=== PATIENT | male | born 1980 | race Caucasian/White ===

== ENCOUNTER 2017-05-22 10:48 | Emergency (ER) | payer SELFPAY ==
[2017-05-22 11:15] VITALS: RESP 16; TEMP 97.7
--- NOTE | 2017-05-22 13:50 | DI ---
XR ANKLE COMPLETE MIN 3VW,05/22/2017 11:00 AM: Clinical History: Trauma Previous Exam: None at this facility. Findings: 3 views of the left ankle are obtained, and demonstrate a slightly displaced fracture of the left dis baltazar fibular diaphysis. There is a large amount of surrounding soft tissue swelling. Impression: Spiral fracture through the left distal fibular diaphysis.
--- NOTE | 2017-05-23 05:58 | PDOC ---
Lower Extremity Injury HPI - General Chief Complaint: Lower Extremity Problem/Injury Stated Complaint: FELL AND INJURED LEFT ANKLE Date Seen by Provider: 05/22/17 Time Seen by Provider: 10:55 Source: POSITIVE: Patient Exam Limitations: POSITIVE: No limitations Nurse's Notes Reviewed & Considered: Yes - History of Present Illness Initial Comments: The patient is a 36-year-old male. 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 He fell onto his left foot and forced his left foot into inversion. He states he has attempted to walk on this leg, but it is very painful when he tries to do so. He has swelling over the lateral and medial aspect of the involved ankle. He denies any knee or hip pain. No other trauma. Have you received a tetanus shot in the past 10 years?: Unknown Body Location Affected: REPORTS: Lower Extremity (L) Timing: REPORTS: Abrupt Duration: 1 hour Severity: Moderate Quality: REPORTS: "Pain" Location at Time of Onset: REPORTS: Work Context of Injury: REPORTS: Fall, Twist Location of Injury: REPORTS: Ankle (L) Modifying Factors: improves with: Walking, Other (Direct palpation exacerbates) Associated Symptoms: REPORTS: Unable to Bear Weight, Snapping Any Prior Injuries Related to Current Complaint?: No - Patient Home Medications Home Medications: Home Medications Cetirizine HCl [Zyrtec] 10 mg PO DAILY PRN 05/22/17 HYDROcodone/APAP 10/325 Tab [[place] 10/325 Tab] 1 tab PO Q4H PRN #25 tab - Patient Allergies Allergies/Adverse Reactions: Allergies Allergy/AdvReac Type Severity Reaction Status Date / Time No Known Allergies Allergy Unverified 05/22/17 10:52 Past Medical History - heen HEENT History: Denies History Cardiovascular History: Denies History Respiratory History: Other (please comment) Additional Respiratory History: ALLERGIES Gastrointestinal History: Denies History Genitourinary History: Denies History Endocrine History: Denies History Musculoskeletal History: Denies History Neurological History: Denies History Blood Disorders: Denies History Psychiatric History: Denies History History of Sexually Transmitted Diseases: No Male Reproductive History: Denies History Cancer History: Denies History In Past Year Been Physically Harmed or Verbally Threatened: No History of MDRO: No History of Other Communicable Diseases: No Tobacco Use: Never Smoker Alcohol Use: Occasionally Substance Use Type: None Previous Surgical History: No Significant Family History: No pertinent family hx Past Medical History Reviewed: Reviewed - No Changes ROS - Limitations ROS Limitations: No Limitations Constitution: REPORTS: Denies Symptoms Cardiovascular: REPORTS: Denies Cardiac Symptoms Respiratory: REPORTS: Denies Resp Symptoms Neurological: REPORTS: Denies Neuro Symptoms Gastrointestinal: REPORTS: Denies GI Symptoms Endocrine: REPORTS: Denies Symptoms Musculoskeletal: REPORTS: Joint Pain (Left ankle), Recent Injury (As above) Genitourinary: REPORTS: Denies Symptoms Eyes: REPORTS: Denies Symptoms ENT: REPORTS: Denies Symptoms Skin: REPORTS: Denies Skin Symptoms Lympathic: REPORTS: Denies Lympathic Symptoms Immunologic: POSITIVE: Denies Symptoms Psychiatric: POSITIVE: Denies Psych Symptoms Discharge Clinical Impression: Ankle fracture, left Condition: Stable Prescriptions / Orders: HYDROcodone/APAP 10/325 Tab [[place] 10/325 Tab] 1 tab PO Q4H PRN #25 tab PRN Reason: Pain Patient Instructions Given at Discharge: Ankle Fracture (ED) Additional Instructions: You have a fracture to your left ankle. Please keep your foot and ankle immobilized in a cam walker and use crutches and bear no weight on your left leg. Elevate sure leg. Follow-up in the orthopedic clinic. Hydrocodone/APAP, one every 4 hours as necessary for pain. Return here anytime if condition worsens in any way whatsoever. Do not return to work until cleared by the orthopedist. Follow Up With: NONE,NONE [Primary Care Provider] - (Instructions as above. Follow-up in orthopedic clinic. Return here as necessary.)
--- NOTE | 2017-05-23 06:07 | PDOC ---
Foot / Ankle Injury - General Chief Complaint: Lower Extremity Problem/Injury Stated Complaint: FELL AND INJURED LEFT ANKLE Date Seen by Provider: 05/22/17 Time Seen by Provider: 10:55 Source: POSITIVE: Patient Exam Limitations: POSITIVE: No limitations Nurse's Notes Reviewed & Considered: Yes - History of Present Illness Initial Comments: The patient is a 36-year-old male. 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 Incident occurred approximately one hour ago. He states he attempted to walk on his left foot but had considerable pain when trying to do so. He denies any knee hip or any other injuries. No sensory, or motor symptoms. Have you received a tetanus shot in the past 10 years?: Unknown Location: Left Ankle Timing: REPORTS: Abrupt Duration: 1 hour Severity: Moderate Quality: REPORTS: "Pain" Location at Time of Onset: REPORTS: Work Context: REPORTS: Fall, Twist Modifying Factors: REPORTS: Movement, Other (discomfort on palpation) Associated Symptoms: REPORTS: Swelling, Snapping Sensation. DENIES: Tingling Distally, Numbness Distally, Popping Sensation, Other Any Prior Injuries Related to Current Complaint?: No - Patient Allergies Allergies/Adverse Reactions: Allergies Allergy/AdvReac Type Severity Reaction Status Date / Time No Known Allergies Allergy Unverified 05/22/17 10:52 - Patient Home Medications Home Medications: Home Medications Cetirizine HCl [Zyrtec] 10 mg PO DAILY PRN 05/22/17 HYDROcodone/APAP 10/325 Tab [[place] 10/325 Tab] 1 tab PO Q4H PRN #25 tab Past Medical History - heen HEENT History: Denies History Cardiovascular History: Denies History Respiratory History: Other (please comment) Additional Respiratory History: ALLERGIES Gastrointestinal History: Denies History Genitourinary History: Denies History Endocrine History: Denies History Musculoskeletal History: Denies History Neurological History: Denies History Blood Disorders: Denies History Psychiatric History: Denies History History of Sexually Transmitted Diseases: No Male Reproductive History: Denies History Cancer History: Denies History In Past Year Been Physically Harmed or Verbally Threatened: No History of MDRO: No History of Other Communicable Diseases: No Tobacco Use: Never Smoker Alcohol Use: Occasionally Substance Use Type: None Previous Surgical History: No Significant Family History: No pertinent family hx Past Medical History Reviewed: Reviewed - No Changes ROS - Limitations ROS Limitations: No Limitations Constitution: REPORTS: Denies Symptoms Cardiovascular: REPORTS: Denies Cardiac Symptoms Respiratory: REPORTS: Denies Resp Symptoms Neurological: REPORTS: Denies Neuro Symptoms Gastrointestinal: REPORTS: Denies GI Symptoms Endocrine: REPORTS: Denies Symptoms Musculoskeletal: REPORTS: Joint Pain (Left ankle), Lower Extremity Swelling ( Over left lateral ankle and less so left medial ankle) Genitourinary: REPORTS: Denies Symptoms Eyes: REPORTS: Denies Symptoms ENT: REPORTS: Denies Symptoms Skin: REPORTS: Denies Skin Symptoms Lympathic: REPORTS: Denies Lympathic Symptoms Immunologic: POSITIVE: Denies Symptoms Psychiatric: POSITIVE: Denies Psych Symptoms Foot / Ankle Exam - General Appearance General Appearance: POSITIVE: Alert, Cooperative, No Acute Distress. NEGATIVE: No Evidence of Trauma - Extremities Foot: POSITIVE: Normal Inspection, Non-Tender Ankle: POSITIVE: Normal ROM, Stable, Soft-Tissue Tenderness, Bony Tenderness, Swelling, See Diagram. NEGATIVE: Normal Inspection, Non-Tender, Ecchymosis, Limited ROM, Deformity, Ligamentous Instability Gait: POSITIVE: Unable to Bear Weight Neuro: POSITIVE: Sensation Normal, Motor Normal Vascular: POSITIVE: No Vascular Compromise, Full Pulses, Equal Pulses Tendons: POSITIVE: Tendon Function Normal Skin: POSITIVE: Warm, Dry - Neck / Back Neck / Back: Normal Inspection - Respiratory / CVS Respiratory / CVS: POSITIVE: Chest Non-Tender, No Respiratory Distress, Heart Sounds Normal, Regular Rate/Rhythm, Breath Sounds Normal Peripheral Pulses: Radial (R): 2+, Radial (L): 2+, Dorsalis-pedis (R): 2+, Dorsalis-pedis (L): 2+ Images - Lower Extremities Lower Extremities: 1 - Some swelling in discomfort on palpation 2 - Swelling and discomfort on palpation Procedures - Splinting Time Splint Applied: 11:15 Location: Cam Walker to left lower leg Pre-Proc Neuro Vasc Exam: Normal Splint Type: CAM Walker, Crutches Splint Form: Short Extremity Applied By:: Nurse Foot / Ankle Progress - Results Reviewed by me Pain Medication Addressed: POSITIVE: Yes (hydrocodone/APAP) School/Work Release Addressed: POSITIVE: Yes (not to return to work until cleared by orthopedist) Xrays/CTs/US Reviewed by me: Yes Discussed with Radiologist: No Radiology Results: POSITIVE: Left, Ankle Radiology Findings: Spiral fracture of distal fibula, diaphysis - Patient's Progress Re-Examine Time:: 11:35 Re-Examine Comment: Patient counseled regarding his injury. Analgesia prescribed. Patient gets some relief following stabilization in a cam walker. Status: POSITIVE: Improved, Re-Examined - Consult Counseled: POSITIVE: Patient, RE: Radiology Results, RE: DX, RE: Need for F/U Patient Care Time - Estimated PCT Patient Care Time (In Minutes): 30 Vital Signs - VS Reviewed Vital Signs Reviewed: Yes Discharge Clinical Impression: Ankle fracture, left Discharge Disposition: Discharged to Home Condition: Stable Prescriptions / Orders: HYDROcodone/APAP 10/325 Tab [[place] 10/325 Tab] 1 tab PO Q4H PRN #25 tab PRN Reason: Pain Patient Instructions Given at Discharge: Ankle Fracture (ED) Additional Instructions: You have a fracture to your left ankle. Please keep your foot and ankle immobilized in a cam walker and use crutches and bear no weight on your left leg. Elevate sure leg. Follow-up in the orthopedic clinic. Hydrocodone/APAP, one every 4 hours as necessary for pain. Return here anytime if condition worsens in any way whatsoever. Do not return to work until cleared by the orthopedist. Follow Up With: NONE,NONE [Primary Care Provider] - (Instructions as above. Follow-up in orthopedic clinic. Return here as necessary.)
== END 2017-05-22 11:52 | disposition home or self-care (01) ==
LOC: ER 10:48
DX: S82.442A Displaced spiral fracture of shaft of left fibula, initial encounter for closed fracture (principal); W17.89XA Other fall from one level to another, initial encounter; Y99.0 Civilian activity done for income or pay
CPT/HCPCS: 73610; 99282